=== PATIENT | male | born 1950 | race Caucasian/White ===

== ENCOUNTER 2016-04-13 06:02 | Day surgery (SDC) | payer MEDICARE ==
[2016-04-09 15:16] VITALS: BMI 27.7
[2016-04-13 06:24] VITALS: RESP 20
[2016-04-13] MEDS ORDERED: Dexamethasone 4 mg/1 ml ONE ×2 (07:06→07:57)
[2016-04-13] MEDS ORDERED: methylPREDNISolone Depo 80 mg/ml Inj ONE (07:06)
[2016-04-13] MEDS ORDERED: Bacitracin Ointment 30 GM TUBE ONE (07:07)
[2016-04-13] MEDS ORDERED: Midazolam 2 MG/2 ML VIAL ONE (07:25)
[2016-04-13] MEDS ORDERED: Propofol 10 mg/ml Inj (20 ML) ONE (07:25)
[2016-04-13] MEDS ORDERED: ePHEDrine 50 mg/ml Inj ONE (07:26)
[2016-04-13] MEDS ORDERED: Succinylcholine 200 mg/10 ml Inj IV ONE (07:26)
[2016-04-13] MEDS ORDERED: Rocuronium 10 mg/ml (5 ml) ONE (07:26)
[2016-04-13] MEDS ORDERED: Phenylephrine 10 mg/ml Inj ONE (07:26)
[2016-04-13] MEDS ORDERED: Lactated Ringer's 1,000 ML IV ONE (07:30)
[2016-04-13] MEDS ORDERED: Bupivacaine 0.5% Inj(30mL) ONE (07:35)
[2016-04-13] MEDS ORDERED: Lidocaine 1% Inj (20ml) ONE (07:35)
[2016-04-13] MEDS ORDERED: Bupivacaine 0.5% 50 ML IJ ONE ×3 (09:18→09:32)
[2016-04-13] MEDS ORDERED: Dexamethasone 4 mg/1 ml IM ONE ×3 (09:19→09:32)
[2016-04-13] MEDS ORDERED: Bacitracin OINT 15GM TOP ONE ×2 (09:31→09:32)
[2016-04-13] MEDS: HYDROmorphone 0.5 mg/0.5 ml ISec IVP PRN ×2 (10:26→10:35)
[2016-04-13] MEDS ORDERED: Ropivacaine 0.5% 30ML IV ONE (10:26)
--- NOTE | 2016-04-13 11:28 | PCM.SURG1 ---
Surgeon's Initial Post Op Note - Surgeon's Notes Surgeon: Kanchan Director Trial: JAIRO Santamaria Type of Anesthesia: General Endo Anesthesia Administered By: Dr Escamilla Pre-Operative Diagnosis: Carpal Tunnely Syndrome R Wrist. trigger finger 4th finger R hand/ Trigger Thumb Operative Findings: as above Post-Operative Diagnosis: as above. flexortenosynovitis (flexor tendons carpal tunnel) Operation Performed: Release carpal tunnel/Median nerve release. partial flexor tenosynovectomy Specimen/Specimens Removed: tenosynovium. epineurium. transverser carpal ligament. a1/C1 madisyn Estimated Blood Loss: EBL {In ML}: 15 Blood Products Given: N/A Drains Used: No Drains Post-Op Condition: Good Date of Surgery/Procedure: 04/13/16 Time of Surgery/Procedure: 08:30 (time in room:7:45/anaetsheisa induction time 8 :25/ end time 10:00)
[2016-04-13 11:38] VITALS: PULSE 91; O2SAT 98
[2016-04-13] MEDS ORDERED: Insulin Regular 100 units/ml SC SCH (12:00)
[2016-04-13] MEDS ORDERED: Oxycodone/Acetaminophen 5/325 mg Tab PO STA (12:06)
[2016-04-13 12:36] VITALS: BP 141/76; TEMP 97.6
[2016-04-13] MEDS ORDERED: Oxycodone/Acetaminophen 5/325 mg Tab PO ONE (12:45)
--- NOTE | 2016-04-14 15:54 | OP ---
PROCEDURE DATE: 04/13/2016 PREOPERATIVE DIAGNOSES: 1. Carpal tunnel syndrome, right wrist. 2. Trigger thumb. 3. Trigger finger, fourth finger, right hand/ring finger, right hand. POSTOPERATIVE DIAGNOSES: 1. Carpal tunnel syndrome, right wrist. 2. Trigger thumb. 3. Trigger finger, fourth finger, right hand/ring finger, right hand. PROCEDURES: 1. Release carpal tunnel. 2. Partial median neurolysis. 3. Partial flexor tenosynovectomy. 4. Release trigger thumb. 5. Release trigger finger, A1 madisyn fourth finger, partial flexor tenosynovectomy, thumb and fourth finger. SURGEON: Avi Hemphill MD BULK CLERK: Lisa Robertson. ANESTHESIA: General endotracheal anesthesia; Dr. Escamilla. COMPLICATIONS: None. DRAINS: None. OPERATIVE INDICATION: This patient is a gentleman well known to my practice, a 65-year-old gentleman who presents with pain and restricted range of motion of the wrist. The patient has marked discomfo rt, pain and restricted range of motion with triggering of the C1 madisyn of thumb and the A1 madisyn o f the fourth finger of the right hand. Pros, cons, risks and benefits of surgical approach were disc ussed. The possibility of mechanical failure, infection, nerve injury, thromboembolic disease, secon dave or tertiary surgery is discussed. The patient can no longer stand the discomfort. OPERATIVE PROCEDURE: After having obtained informed consent in the above fashion, after the satisfac tory induction of general endotracheal anesthesia, after having identified side, site and procedure, and a critical pause/timeout, the patient correctly identified, in the supine position with all bony prominences well padded, the right upper extremity is prepped and free draped in a sterile fashion fo r upper extremity surgery. The tourniquet had been applied, but is not yet inflated. After exsangui nating the limb using a 6-inch Esmarch bandage, the tourniquet which had been applied is inflated to 250 mmHg. The operation is performed under loupe magnification. An initial incision as described in the median palmar crease deviating radially at the distal crease and deviating back ulnarly at proxi mal crease. The skin incision is carried down through the skin and subcutaneous tissue. The underly ing palmar aponeurosis was identified. The operation is performed under loupe magnification. This treadwell ving been accomplished, the entire extent of the transverse carpal ligament is identified. The entir e extent of the transverse carpal ligament is released. There is found to be evidence of release of the transverse carpal ligament. Partial median neurolysis is accomplished as well as partial flexor tenosynovectomy under direct vision with the ____ dissecting scissors/tenotomy scissors. There is fo und to be a fischer purplish hue to the median nerve and it is found that this is indeed compressed. Th e entire extent of the transverse carpal ligament to the distal aspect of the forearm was released. Partial medial neurolysis is accomplished as is partial flexor tenosynovectomy. This having been acc omplished, attention is turned to the thumb. At the proximal crease, an incision is described at the base of the thumb superficial to the C1 madisyn. Skin incision is carried down through the skin and subcutaneous tissue. Dissection is carried out with a hemostat to avoid injury to the digital nerves . Modified Ragnell retractors were employed to protect the nerve. At this point in time, the C1 pul mariel is identified. Using a #15 blade, again under direct magnified vision, the trapezoid is removed from the C1 madisyn. The wound is thoroughly irrigated. The flexor tendon is freed, partial flexor t enosynovectomy is accomplished. The wound is thoroughly irrigated. The FPL was fishtailed into the wound with a hemostat to prove that it is completely free. Closure is in layers with interrupted Jorge ryl and nylon. Attention is turned to the ring finger in the area of the A1 madisyn. A superficial 1 cm incision is described. The skin incision is carried down through the skin and subcutaneous tissu e. Dissection is carried down. Again, the digital nerves were identified and protected using retrac tors. This having been accomplished, the trapezoidal A1 madisyn is identified. A trapezoid is remove d and the remains of the A1 madisyn are released. The flexor tendon is moved into the wound. The wou nd is thoroughly irrigated. Closure is in layers with interrupted Vicryl and nylon. Eddie Whitt co mpression dressing and volar splint is applied. Avi Hemphill MD cc: [id number] TT: 04/14/2016 15:53:45 mn
== END 2016-04-13 13:40 | disposition home or self-care (01) ==
LOC: H.OPSURG 06:02
PROVIDERS: ATTEND Orthopaedic Surgery
DX: G56.01 Carpal tunnel syndrome, right upper limb (principal); M65.311 Trigger thumb, right thumb; M65.341 Trigger finger, right ring finger; M19.91 Primary osteoarthritis, unspecified site; I10 Essential (primary) hypertension; E78.5 Hyperlipidemia, unspecified
CPT/HCPCS: 26055; 64721; 64727; 82948; 88304; 88307; J0330; J0690; J1100; J1170; J2001; J2250; J2370; J2405; J2704; J3010; J7030; J7120

== ENCOUNTER 2016-08-06 08:06 | Inpatient (IN) | payer MEDICARE ==
[2016-04-09 15:16] VITALS: BMI 27.7
--- NOTE | 2016-08-06 09:05 | CP.PCM.HP ---
History of Present Illness - History of Present Illness History of Present Illness: 65 y/.o male with PMH DM type II, HTN, left knee OA presented via [facility] for scheduled left total knee replacement by Dr. Hemphill. Patient has medical clearance in the chart. As per patient he has been suffering of left knee pain, decreased ROM and problem with his ambulation for more than 1 year. He underwent arthroscopic procedure for meniscus repair months ago with not much improvement. Today he is here for left TKR . He denies any chest pain, palpitations, PND, orthopnea,SOB, urinary symptoms or changes in bowel movements. Allergies ; NKDA PMH ; DM type II, HTN Medications ; Norvasc, Lisinopril, Motrin,Glucotrol,metformin,Zocor Surgery ; left knee arthroscopy, carpal tunnel surgery cataract extraction, back surgery x 3 times Family history; Mother had heart disease, DM , HTN Brother had heart disease Social history , has 1 daughter, lives in [place] with family, retired ( used to work in [employer] for 23 [id number] with no assist devices, has 23 steps to get home, denies ETOH, smoking or drug abuse ROS ; 14 poit review of system negative except above Present on Admission - Present on Admission Any Indicators Present on Admission: No Review of Systems - Review of Systems All systems: reviewed and no additional remarkable complaints except Past Patient History - Infectious Disease Hx of Infectious Diseases: None - Tetanus Immunizations Tetanus Immunization: Unknown - Past Medical History & Family History Past Medical History?: Yes Past Family History: Reviewed and not pertinent - Past Social History Smoking Status: Never Smoked Chewing Tobacco Use: No Cigar Use: No Alcohol: None Drugs: Denies Home Situation {Lives}: With Family Domestic Violence: Negative - CARDIAC Hx Cardiac Disorders: Yes Hx Hypercholesterolemia: Yes Hx Hypertension: Yes - PULMONARY Hx Respiratory Disorders: No - NEUROLOGICAL Hx Neurological Disorder: No - HEENT Hx HEENT Problems: Yes Hx Cataracts: Yes - RENAL Hx Chronic Kidney Disease: No - ENDOCRINE/METABOLIC Hx Endocrine Disorders: Yes Hx Diabetes Mellitus Type 2: Yes - HEMATOLOGICAL/ONCOLOGICAL Hx Blood Disorders: No Hx Blood Transfusions: No - INTEGUMENTARY Hx Dermatological Problems: No - MUSCULOSKELETAL/RHEUMATOLOGICAL Hx Musculoskeletal Disorders: Yes Hx Arthritis: Yes Hx Back Pain: Yes Hx Falls: Yes Hx Osteoarthritis: Yes - GASTROINTESTINAL Hx Gastrointestinal Disorders: Yes Hx Gastroesophageal Reflux: Yes Other/Comment: HEARTBURN - GENITOURINARY/GYNECOLOGICAL Hx Genitourinary Disorders: No - PSYCHIATRIC Hx Psychophysiologic Disorder: No - SURGICAL HISTORY Hx Surgeries: Yes Hx Cataract Extraction: Yes (O.U) Hx Orthopedic Surgery: Yes (RIGHT KNEE) Other/Comment: BACK SX X3.CARPAL TUNNEL RELEASE RIGHT WRIST 04/13/2016 - ANESTHESIA Hx Anesthesia: Yes Hx Anesthesia Reactions: No Hx Malignant Hyperthermia: No Has any member of the family had a problem w/ anesthesia?: No Meds Allergies/Adverse Reactions: Allergies Allergy/AdvReac Type Severity Reaction Status Date / Time No Known Allergies Allergy Verified 08/06/16 08:29 Physical Exam - Constitutional Appears: Non-toxic, No Acute Distress - Head Exam Head Exam: ATRAUMATIC, NORMAL INSPECTION, NORMOCEPHALIC - Eye Exam Eye Exam: EOMI, Normal appearance, PERRL Pupil Exam: NORMAL ACCOMODATION - ENT Exam ENT Exam: Mucous Membranes Moist, Normal Exam - Neck Exam Neck exam: Positive for: Full Rom, Normal Inspection - Respiratory Exam Respiratory Exam: Clear to Auscultation Bilateral, NORMAL BREATHING PATTERN. absent: Rales, Rhonchi, Wheezes - Cardiovascular Exam Cardiovascular Exam: REGULAR RHYTHM, RRR, +S1, +S2. absent: JVD - GI/Abdominal Exam GI & Abdominal Exam: Normal Bowel Sounds, Soft. absent: Distended, Guarding, Rebound, Tenderness - Rectal Exam Rectal Exam: Deferred - Extremities Exam Extremities exam: Positive for: normal capillary refill, normal inspection, pedal pulses present. Negative for: calf tenderness, pedal edema - Back Exam Back exam: NORMAL INSPECTION - Neurological Exam Neurological exam: Alert, CN II-XII Intact, Oriented x3, Reflexes Normal - Psychiatric Exam Psychiatric exam: Normal Affect, Normal Mood - Skin Skin Exam: Dry, Intact, Normal Color, Warm Assessment & Plan - Assessment and Plan (Free Text) Assessment: 65 y/o male with PMH DM type II, HTN, left knee OA presented via [facility] for scheduled left total knee replacement by Dr. Hemphill. Patient has medical clearance in the chart. As per patient he has been suffering of left knee pain, decreased ROM and problem with his ambulation for more than 1 year. He underwent arthroscopic procedure for meniscus repair months ago with not much improvement. Today he is here for left TKR . He denies any chest pain, palpitations, PND, orthopnea,SOB, urinary symptoms or changes in bowel movements. 1. Left knee osteoarthritis Admit patient via [facility] for Left TKR by Dr. Hemphill ortho consult Patient has medical clearance in the chart Keep NPo for now will follow up post op 2. DM type II NPO for now for surgery accuchecks ,low dose aspart coverage resume Metformin and glucotrol once starts Po intake 3.HTN resume home meds , lisinopril and Norvasc 4.DVT prophylaxis To be started post op as per ortho recomemndations
[2016-08-06] MEDS ORDERED: Bupivacaine 0.5% Inj(30mL) ONE (09:49)
[2016-08-06] MEDS ORDERED: Lidocaine 1% Inj (20ml) ONE (09:49)
[2016-08-06] MEDS ORDERED: Bacitracin Ointment 30 GM TUBE ONE (09:49)
[2016-08-06] MEDS ORDERED: Thrombin Topical 5,000 IU Spray Kit ONE (09:50)
[2016-08-06] MEDS ORDERED: Absorbable Gelatin Sponge Size 100 ONE (09:50)
[2016-08-06] MEDS ORDERED: Phenylephrine 10 mg/ml Inj ONE (11:01)
[2016-08-06] MEDS ORDERED: Succinylcholine 200 mg/10 ml Inj IV ONE (11:07)
[2016-08-06] MEDS ORDERED: Midazolam 2 MG/2 ML VIAL ONE (11:07)
[2016-08-06] MEDS ORDERED: Propofol 10 mg/ml Inj (20 ML) ONE (11:07)
[2016-08-06] MEDS ORDERED: ePHEDrine 50 mg/ml Inj ONE ×2 (11:08→13:34)
[2016-08-06] MEDS ORDERED: Bupivacaine HCl 0.5% PF (30 ml) Inj ONE (11:19)
[2016-08-06] MEDS ORDERED: Bupivacaine HCl 0.25% PF (30 ml) Inj ONE (11:20)
[2016-08-06] MEDS ORDERED: Vecuronium 10 mg Inj ONE (11:25)
--- NOTE | 2016-08-06 11:46 | RAD ---
PROCEDURE: Left Knee Radiographs. HISTORY: Pain. COMPARISON: None. FINDINGS: BONES: Bone alignment and mineralization are normal. There is no acute fracture or bone destruction. JOINTS: There is severe tricompartmental degenerative osteoarthrosis with reduced joint spaces, marginal osteophytes and tibial spiking, worse in the medial compartment. JOINT EFFUSION: There is a small suprapatellar joint effusion. OTHER FINDINGS: None. IMPRESSION: Moderate tricompartmental degenerative osteoarthrosis, worse in the medial compartment. Small suprapatellar joint effusion.
[2016-08-06] MEDS ORDERED: Lactated Ringer's 1,000 ML IV ONE ×2 (12:22→14:40)
[2016-08-06] MEDS ORDERED: Rocuronium 10 mg/ml (5 ml) ONE (13:50)
--- NOTE | 2016-08-06 14:47 | PCM.SURG1 ---
Surgeon's Initial Post Op Note - Surgeon's Notes Surgeon: Kanchan Asphalt Blender: JAIRO Fair/ 2nd reid Estrella Type of Anesthesia: General Endo, Spinal Anesthesia Administered By: Dr Leah Cuevas Pre-Operative Diagnosis: Troicomparmtental primary O/A L knee. tricompartmental synovitis. posterior capsular contracture. lateral patella retinacular contracture Operative Findings: as above Post-Operative Diagnosis: as above Operation Performed: L TKR. anterior and posterior synovectomy. posteriopr capsular release. latera; patella release. computer navigation Specimen/Specimens Removed: synovium/ Estimated Blood Loss: EBL {In ML}: 75 Blood Products Given: N/A Drains Used: No Drains Post-Op Condition: Good Date of Surgery/Procedure: 08/06/16 Time of Surgery/Procedure: 13:25 (time in room: 12:22/12:22)
[2016-08-06] MEDS ORDERED: Desflurane Inhalation Anesthetic Liq (240 ml) ONE (15:00)
[2016-08-06] MEDS ORDERED: Neostigmine Methylsulfate 2 MG/2 ML ML IV ONE (15:02)
[2016-08-06] MEDS ORDERED: Neostigmine Methylsulfate 3mg/3ml Syringe IV ONE (15:02)
[2016-08-06] MEDS ORDERED: HYDROmorphone 0.5 mg/0.5 ml ISec ONE (15:52)
[2016-08-06] MEDS ORDERED: HYDROmorphone 0.5 mg/0.5 ml ISec IVP PRN (16:00)
[2016-08-06] MEDS ORDERED: Insulin Regular 100 units/ml SC ONE (16:12)
[2016-08-06] MEDS: Lactated Ringer's 1,000 ML IV SCH ×3 (16:23→17:30)
--- NOTE | 2016-08-06 16:25 | PCM.OP ---
Operative Report - Operative Report Date of Surgery/Procedure: 08/06/16 Time of Surgery/Procedure: 13:25 (time in roomk/anaesthesia indcution time:12:22 / 3nd 15:35) Surgeon: Kanchan Substance Abuse Counselor: 1st assist JAIRO Santamaria/2nd assist Yusuf Pak Anesthesia/Sedation: General is. / regional Pre-Operative Diagnosis: Primary O/A L knee Post-Operative Diagnosis: Primary O/A L knee. tricompartmental synovitis. posterior capsular contracture. lateral patella contracture Indication for Surgery: sevre pain and restricte L knee ROM, refracrtory to conservative approach Operative Findings: severe triucomaprtmental O/A L knee. antnow is wheneriopr and postertioor sisynovitis. posterior ca aggravationpsular cointrascture. lateral patella contracture Procedure/Operation Description: dictating the operative procedure Leti Fitzgerald. Operative procedure after obtained informed consent after thoroughly discussing the pros, risks and benefits of knee r replacement the possibility of mechanical failure, infection, thromboembolic disease, stiffness nerve injury the patient identified as letitrey fitzgerald in supine position with all bony prominences well-padded. Left lower extremity is prepped and free draped in usual fashion for knee replacement arthroplasty. After the satisfactory induction of regional and general anesthesia, after having identified side and procedure in a critical pause/timeout the left lower extremity is exsanguinated using a 6 inch Esmarch bandage. The tourniquet which have applied is inflated to 350 mmHg. A 6 inch straight midline approach is made to the knee. The skin incision was carried through the skin and subcutaneous tissue. A medial arthrotomy was accomplished. Dissection was carried around posteromedially to the direct head of the semimembranosus tendon. A portion of the patellar ligament was elevated carefully. Tibia is dislocated anteriorly. Anterior and posterior cruciate ligaments are excised; medial and lateral meniscectomies are accomplished. Initial osteotomy of the arthroplasty is accomplished on the tibial side. The navigation device is placed On the anterior aspect of the tibia. The sensor and accelerometer are positioned. Registration was accomplished. After registering the medial malleolus and lateral malleolus varus valgus is set at 0. Posterior slope was set at 1.5 posterior slope. the osteotomy was accomplished sizing of the tibia commences. The #4 tibial guide is placed. Guidance to rotation or the lateral aspect of the tibia. The minimally R axis is employed The proximal tibia having been prepared, attention is turned to the femur. The guide pin is placed above the intercondylar notch. The distal femoral cutting guide is affixed. Sensor was placed and the accelerometer is pl;aced. Registration was accomplished. The hip center was found by rotating the hip. The distal cut was set to 0 varus valgus and 0.5 flexion. The distal cut was set to 10 mm. The distal cut was accomplished. Anterior posterior sizing was found to be a #5 femoral component. The 4-in-1 block is placed on the Distal aspect of the femur. Anterior and posterior synovectomy. The anterior and posterior osteotomies are accomplished on the Femoral side. There is evidenced posterior capsule contracture. The posterior capsule was release both medially and laterally. There was found to be a lateral patellar retinacular contracture as well. A lateral patellar release was accomplished. Femoral trial and tibial trials were applied. 12 mm tibial polyethylene is employed. Flexion and extension balance is excellent. Attention was turned to the patell. Patella is measured. Free hand patellar osteotomy was accomplished. The patella was reamed to a size 37 Flexion-extension balance and patella balance are felt to be excellent. this having been accomplished the femur and tibia and patella were prepared. The #5 femoral component #4 tibial component and the 37 mm patella component are cemented with meticulous technique. The wounds thoroughly irrigated with Irircept., The tourniquet was deflated. Hemostasis control. Closure was in layers #1 Vicryl followed by zero quill and radha for skin. A Eddie Whitt compression dressing is applied. Aquacel dressing is employed. The patient was transferred from the operating room table to the stretcher and tolerated the procedure well. Blood loss was 75 mL no complications no drains. This is the end of the operative description and procedure portion of the postoperative note. Dr. Hemphill dictating 08/06/2016. Estimated Blood Loss: 75 cc Blood Replaced: 0 Sponge/Instrument Count: correct Drains: 0 Complications: none Specimen: bone cartilage synvium Discharge & Condition: stable- discharge to PACU
[2016-08-06] MEDS: ceFAZolin 2 GM in Sodium Chloride 0.9% 100 ML IVPB SCH (17:45)
--- NOTE | 2016-08-06 18:16 | RAD ---
PROCEDURE: Left Knee Radiographs. HISTORY: Pain. COMPARISON: None. FINDINGS: BONES: Satisfactory postoperative status following left TKA. Components of the left knee arthroplasty are anatomically aligned. JOINTS: Normal. No osteoarthritis. JOINT EFFUSION: None. OTHER FINDINGS: None. IMPRESSION: Satisfactory postoperative status.
[2016-08-06] MEDS: Insulin Lispro (humaLOG) 100 Units/ml Inj SC SCH (22:03)
[2016-08-07] MEDS: ceFAZolin 2 GM in Sodium Chloride 0.9% 100 ML IVPB SCH ×2 (00:36→12:06)
[2016-08-07] MEDS: Lactated Ringer's 1,000 ML IV SCH (00:54)
[2016-08-07] MEDS: Sodium Chloride 0.9% 1,000 ML IV SCH ×2 (04:28→16:32)
[2016-08-07 06:38] LABS: HEMOGLOBIN 10.4 g/dL (12.0-18.0); MEAN CELL VOLUME 82.4 fl (80.0-94.0); MEAN CORPUSCULAR HEMOGLOBIN 27.8 pg (27.0-31.0); MEAN CORPUSCULAR HGB CONC 33.7 g/dL (33.0-37.0); RBC 3.75 Mil/uL (4.40-5.90); RED CELL DISTRIBUTION WIDTH 15.5 % (11.5-14.5); WHITE BLOOD COUNT 10.4 K/uL (4.8-10.8)
[2016-08-07 06:59] LABS: BLOOD UREA NITROGEN 12 mg/dl (9-20); CALCIUM 8.8 mg/dL (8.4-10.2); GFR AFRICAN-AMERICAN > 60; GFR NON-AFRICAN AMERICAN > 60
--- NOTE | 2016-08-07 07:19 | PCM.ANESB3 ---
Femoral Nerve Block - Femoral Nerve Block Date of Procedure: 08/06/16 Anesthesiologist: Leah Cuevas Pre-Procedure Diagnosis: Left Knee Osteoarthritis Procedure Performed: Femoral Nerve Block Left - Procedure Femoral Nerve Block: The procedure was explained to the patient that it is for the post-operative pain management. Consent was obtained after a thorough discussion with the patient regarding the benefits and possible complications of local anesthetic block of the femoral nerve at the inguinal crease area. The patient was brought to the operating room and standard monitors were applied. Time-out was held with the circulating nurse to confirm the correct surgery and the appropriate block. After applying oxygen by nasal cannula and administering IV Sedation, patient was placed in supine position with fully extended lower extremities and the left groin exposed. The femoral artery was then carefully palpated. The ultrasound transducer was then applied to this area in the transverse plane and the femoral nerve was visualized lateral to the femoral artery and underneath the fascia iliaca. After thorough identification, the inguinal crease area was prepped with Betadine solution three times and 1 % Lidocaine was injected subcutaneously for topical anesthesia. At this point, a #22 gauge Stimuplex 2-inch needle was inserted immediately lateral to the femoral artery pulse at the inguinal crease and advanced perpendicularly. The needle was inserted to the ultrasound transducer in-plane towards the femoral nerve in a [id number] direction. Needle advancement was performed carefully under direct ultrasound visualization. Nerve stimulator was used and twitch of the quadriceps muscle was obtained at current of 0.4 MA. After negative aspiration, 20cc of 0.375% _bupivacaine was injected. Under ultrasound guidance the local anesthetics were observed spreading below fascia iliaca and around the femoral nerve. The needle was removed intact and sterile dressing was applied. The patient had stable vital signs, was conscious and in no apparent distress. The patient tolerated the femoral nerve block well with stable vital signs and was prepared for subsequent surgery.
--- NOTE | 2016-08-07 07:21 | PCM.ANESB2 ---
Popliteal Nerve Block - Popliteal Nerve Block Date of Procedure: 08/06/16 Anesthesiologist: Leah Cuevas Pre-Procedure Diagnosis: Left Knee Osteoarthritis Procedure Performed: Popliteal Nerve Block Left - Procedure Popliteal Nerve Block: This procedure was explained to the patient that it is for post-operative pain management. Consent was obtained after a thorough discussion with the patient regarding the benefits and possible complications of local anesthetic block of the sciatic nerve at the popliteal level. The patient was brought to the operating room and standard monitors are applied. Time-out was held with the circulating nurse to confirm the correct surgery and the appropriate block. After applying oxygen by nasal cannula and administering IV Sedation, patient's operative leg was gently raised and supported and the groove in between the biceps femoris and vastus lateralis muscles was carefully palpated. The skin approximately 8cm above the popliteal crease was then marked. The ultrasound transducer was then applied to the posterior thigh approximately 8cm above the popliteal crease in the transverse plane and the sciatic nerve before its division was visualized lateral to the popliteal artery and in between the bicep femoris and semimembranosus/semitendinosus muscles. After identification, the lateral portion of the thigh was prepped with Betadine solution three times and Lidocaine 1% was injected subcutaneously for topical anesthesia. At this point, a # 21 gauge Stimuplex insulated 4 inch needle was inserted into pre-marked area and advanced in a perpendicular direction. The needle was inserted above the ultrasound transducer in-plane towards the sciatic nerve in a [id number] direction. Needle advancement was performed carefully under direct ultrasound visualization. Nerve stimulator was used and dorsiflexion of the left foot was elicited at a current of 0.4 MA. After repeated negative aspiration, 15cc of 0.375 % was injected. Under ultrasound guidance the local anesthetics were observed tenting the epidural sheath and surrounding the roots of the sciatic nerve. The needle was removed intact and sterile dressing was applied. The patient tolerated the distal sciatic/popliteal nerve block well with stable vital signs and was subsequently prepared for the surgery.
--- NOTE | 2016-08-07 07:48 | CP.PCM.PN ---
Subjective - Date & Time of Evaluation Date of Evaluation: 08/07/16 Time of Evaluation: 09:00 - Subjective Subjective: Patient seen and examined bedside. Complains of abdominal discomfort , unable to void freely.With urinary retention overnight. Hemopdynamically stable, afebrile. Denies any pain to left knee. Objective - Vital Signs/Intake and Output Vital Signs (last 24 hours): Temp Pulse Resp BP Pulse Ox 98.2 F 106 H 20 122/71 96 08/07/16 05:00 08/07/16 05:00 08/07/16 05:00 08/07/16 05:00 08/07/16 05:00 - Medications Medications: Current Medications Acetaminophen (Tylenol 325mg Tab) 650 mg PO Q6 PRN PRN Reason: Fever >100.4 F Amlodipine Besylate (Norvasc) 5 mg PO DAILY [facility] Docusate Sodium (Colace) 100 mg PO BID [facility] Enoxaparin Sodium (Lovenox) 40 mg SC DAILY [facility] PRN Reason: Protocol Glipizide (Glucotrol) 10 mg PO DAILY@0730 [facility] Home Med (Simvastatin [Zocor]) 10 mg PO DAILY [facility] Sodium Chloride (Sodium Chloride 0.9%) 1,000 mls @ 100 mls/hr IV .Q10H [facility] Last Admin: 08/07/16 04:28 Dose: Not Given Cefazolin Sodium 2 gm/ Sodium (Chloride) 100 mls @ 100 mls/hr IVPB Q8 [facility] Stop: 08/07/16 09:59 Last Admin: 08/07/16 00:36 Dose: 100 mls/hr Insulin Human Lispro (Humalog) 0 units SC ACHS [facility] PRN Reason: Protocol Last Admin: 08/06/16 22:03 Dose: 2 units Lisinopril (Zestril) 10 mg PO DAILY [facility] Metformin HCl (Glucophage) 1,000 mg PO BID@0800,1700 [facility] Pantoprazole Sodium (Protonix Ec Tab) 40 mg PO DAILY [facility] - Labs Labs: 08/07/16 05:20 08/07/16 05:20 - Constitutional Appears: Non-toxic, No Acute Distress - Head Exam Head Exam: ATRAUMATIC, NORMAL INSPECTION, NORMOCEPHALIC - Eye Exam Eye Exam: EOMI, Normal appearance, PERRL Pupil Exam: NORMAL ACCOMODATION - ENT Exam ENT Exam: Mucous Membranes Moist, Normal Exam - Neck Exam Neck Exam: Full ROM, Normal Inspection - Respiratory Exam Respiratory Exam: Clear to Ausculation Bilateral, NORMAL BREATHING PATTERN. absent: Rales, Rhonchi, Wheezes - Cardiovascular Exam Cardiovascular Exam: REGULAR RHYTHM, RRR, +S1, +S2. absent: JVD - GI/Abdominal Exam GI & Abdominal Exam: Tenderness (suprapubic ), Normal Bowel Sounds. absent: Guarding, Rebound - Rectal Exam Rectal Exam: Deferred - Extremities Exam Extremities Exam: absent: Calf Tenderness, Pedal Edema Additional comments: left knee dressing and immobilizer in place - Back Exam Back Exam: NORMAL INSPECTION - Neurological Exam Neurological Exam: Alert, Awake, CN II-XII Intact, Oriented x3 - Psychiatric Exam Psychiatric exam: Normal Affect, Normal Mood - Skin Skin Exam: Dry, Intact, Normal Color, Warm Assessment and Plan - Assessment and Plan (Free Text) Assessment: 65 y/o male with PMH DM type II, HTN, left knee OA presented via [facility] for scheduled left total knee replacement by Dr. Hemphill. As per patient he has been suffering of left knee pain,decreased ROM and problem with his ambulation for more than 1 year. He underwent arthroscopic procedure for meniscus repair months ago with not much improvement.He underwent left TKR 08/06 . Today post op #1, doing well with post op urinary retention 1. Left knee osteoarthritis- s/p Left TKR POD #1 Pain well controlled will d/c [employer] pump and start Percoset PRN for pain Ortho following Received Ancef Iv x 3 doses Incentive spirometry Q1 hour Start ambulkation with PT Lovenox for DVt prophylaxis 2. DM type II uncontrolled accuchecks ,low dose aspart coverage resumed Metformin and glucotrol diabetic diet 3.HTN controlled Continue lisinopril and Norvasc 4. Acute blood loss anemia Hgb 10 Continue to monitor 5. Post op urinary retention requiring straight cath twice (Last 9;00 Am with 1050 ml ) d/c [employer]ER pump Start ambulation and flomax 6.DVT prophylaxis lovenox 40 mg Sq daily
--- NOTE | 2016-08-07 08:10 | CP.PCM.PN ---
Subjective - Date & Time of Evaluation Date of Evaluation: 08/07/16 Time of Evaluation: 08:05 - Subjective Subjective: S- pt with minimal post op discomfort Objective - Vital Signs/Intake and Output Vital Signs (last 24 hours): Temp Pulse Resp BP Pulse Ox 98.3 F 110 H 20 154/85 H 97 08/07/16 07:52 08/07/16 07:52 08/07/16 07:52 08/07/16 07:52 08/07/16 07:52 - Medications Medications: Current Medications Acetaminophen (Tylenol 325mg Tab) 650 mg PO Q6 PRN PRN Reason: Fever >100.4 F Amlodipine Besylate (Norvasc) 5 mg PO DAILY [facility] Docusate Sodium (Colace) 100 mg PO BID [facility] Enoxaparin Sodium (Lovenox) 40 mg SC DAILY [facility] PRN Reason: Protocol Glipizide (Glucotrol) 10 mg PO DAILY@0730 [facility] Home Med (Simvastatin [Zocor]) 10 mg PO DAILY [facility] Sodium Chloride (Sodium Chloride 0.9%) 1,000 mls @ 100 mls/hr IV .Q10H [facility] Last Admin: 08/07/16 04:28 Dose: Not Given Cefazolin Sodium 2 gm/ Sodium (Chloride) 100 mls @ 100 mls/hr IVPB Q8 [facility] Stop: 08/07/16 09:59 Last Admin: 08/07/16 00:36 Dose: 100 mls/hr Insulin Human Lispro (Humalog) 0 units SC ACHS [facility] PRN Reason: Protocol Last Admin: 08/06/16 22:03 Dose: 2 units Lisinopril (Zestril) 10 mg PO DAILY [facility] Metformin HCl (Glucophage) 1,000 mg PO BID@0800,1700 [facility] Pantoprazole Sodium (Protonix Ec Tab) 40 mg PO DAILY [facility] - Labs Labs: 08/07/16 05:20 08/07/16 05:20 - Additional Findings Additional findings: Obj systemic- wnl musculoskekeletal stance/gait- defrred L knee wound bengin N/V intact orthopedically stable post op Xrasy reveal acceptabler position of construct Assessment and Plan - Assessment and Plan (Free Text) Assessment: A- s/p L TKR P-physio orthopedically stable
[2016-08-07] MEDS: Enoxaparin 40 mg Syringe SC SCH (08:38)
[2016-08-07] MEDS: Insulin Lispro (humaLOG) 100 Units/ml Inj SC SCH ×4 (08:41→21:16)
[2016-08-07] MEDS: Pantoprazole 40 mg EC Tab PO SCH (08:41)
[2016-08-07] MEDS ORDERED: SIMVASTATIN 10 MG PO SCH (09:00)
[2016-08-07] MEDS ORDERED: Oxycodone/Acetaminophen 5/325 mg Tab PO PRN (09:09)
[2016-08-07] MEDS: Oxycodone/Acetaminophen 5/325 mg Tab PO PRN ×2 (09:29→21:09)
[2016-08-08] MEDS: Oxycodone/Acetaminophen 5/325 mg Tab PO PRN ×2 (03:26→09:39)
[2016-08-08] MEDS: Insulin Lispro (humaLOG) 100 Units/ml Inj SC SCH (06:57)
[2016-08-08 07:30] LABS: HEMOGLOBIN 8.6 g/dL (12.0-18.0); MEAN CELL VOLUME 83.2 fl (80.0-94.0); MEAN CORPUSCULAR HEMOGLOBIN 27.4 pg (27.0-31.0); MEAN CORPUSCULAR HGB CONC 32.9 g/dL (33.0-37.0); RBC 3.13 Mil/uL (4.40-5.90); RED CELL DISTRIBUTION WIDTH 15.2 % (11.5-14.5)
[2016-08-08] MEDS: Pantoprazole 40 mg EC Tab PO SCH (08:03)
[2016-08-08] MEDS: Enoxaparin 40 mg Syringe SC SCH (08:03)
[2016-08-08 08:08] VITALS: BP 116/69; PULSE 96
[2016-08-08 08:53] VITALS: RESP 20; TEMP 98.3; O2SAT 95
[2016-08-08] MEDS: Sodium Chloride 0.9% 1,000 ML IV SCH (10:17)
--- NOTE | 2016-08-09 07:57 | CP.PCM.DIS ---
Provider - Provider Date of Admission: 08/06/16 17:27 Attending physician: Venecia Cedeno MD Primary care physician: Deja Trammell MD Consults: Ortho: Dr Hemphill Time Spent in preparation of Discharge (in minutes): 25 Diagnosis - Discharge Diagnosis (1) S/P TKR (total knee replacement) Status: Acute (2) Primary osteoarthritis Status: Chronic (3) HTN (hypertension) Status: Chronic (4) DM type 2 (diabetes mellitus, type 2) Status: Chronic (5) Postoperative urinary retention Status: Acute (6) Postoperative anemia due to acute blood loss Status: Acute (7) DVT prophylaxis Status: Acute Hospital Course - Lab Results Lab Results: Most Recent Lab Values WBC 9.0 K/uL (4.8-10.8) 08/08/16 05:30 RBC 3.13 Mil/uL (4.40-5.90) L 08/08/16 05:30 Hgb 8.6 g/dL (12.0-18.0) L 08/08/16 05:30 Hct 26.0 % (35.0-51.0) L 08/08/16 05:30 MCV 83.2 fl (80.0-94.0) 08/08/16 05:30 MCH 27.4 pg (27.0-31.0) 08/08/16 05:30 MCHC 32.9 g/dL (33.0-37.0) L 08/08/16 05:30 RDW 15.2 % (11.5-14.5) H 08/08/16 05:30 Plt Count 166 K/uL (130-400) 08/08/16 05:30 Sodium 136 mmol/l (132-148) 08/07/16 05:20 Potassium 4.5 MMOL/L (3.6-5.0) 08/07/16 05:20 Chloride 102 mmol/L (98-107) 08/07/16 05:20 Carbon Dioxide 24 mmol/L (22-30) 08/07/16 05:20 Anion Gap 15 (10-20) 08/07/16 05:20 BUN 12 mg/dl (9-20) 08/07/16 05:20 Creatinine 0.8 mg/dL (0.8-1.5) 08/07/16 05:20 Est GFR ( Amer) > 60 08/07/16 05:20 Est GFR (Non-Af Amer) > 60 08/07/16 05:20 POC Glucose (mg/dL) 292 mg/dL (65-110) H 08/08/16 06:10 Random Glucose 286 mg/dL (75-110) H 08/07/16 05:20 Calcium 8.8 mg/dL (8.4-10.2) 08/07/16 05:20 Blood Type O POSITIVE 08/06/16 08:35 Blood Type Confirm O POSITIVE 08/06/16 11:44 Antibody Screen Negative 08/06/16 08:35 BBK History Checked No verified bt 08/06/16 08:35 - Hospital Course Hospital Course: 65 y/o male with PMH DM type II, HTN, left knee OA presented via [facility] for scheduled left total knee replacement by Dr. Hemphill. As per patient he has been suffering of left knee pain,decreased ROM and problem with his ambulation for more than 1 year. He underwent arthroscopic procedure for meniscus repair months ago with not much improvement. He underwent left TKR 08/06 . Pt did well post op. PT/OT consulted- rec [facility] placement for further physical and occupational therapy. 1. Left knee primary osteoarthritis- s/p Left TKR Pain well controlled d/c [employer] pump and started Percocet PRN for pain Received Ancef Iv x 3 doses Incentive spirometry Q1 hour PT/OT consulted- rec [facility] Lovenox for DVt prophylaxis 2. DM type II uncontrolled accuchecks ,low dose aspart coverage resumed Metformin and glucotrol diabetic diet 3.HTN controlled Continue lisinopril and Norvasc 4. Mild acute blood loss anemia , post op Pt is hemodynamically stable venofer IV given started Ferrous sulfate 5. Post op urinary retention sec to anesthesia , opiates requiring straight catheterization Flomax 6.DVT prophylaxis lovenox 40 mg Sq daily Discharge Exam - Head Exam Head Exam: ATRAUMATIC, NORMAL INSPECTION, NORMOCEPHALIC - Eye Exam Eye Exam: EOMI, Normal appearance Pupil Exam: NORMAL ACCOMODATION - ENT Exam ENT Exam: Mucous Membranes Moist, Normal External Ear Exam - Neck Exam Neck exam: Full Rom - Respiratory Exam Respiratory Exam: NORMAL BREATHING PATTERN. absent: Respiratory Distress - Cardiovascular Exam Cardiovascular Exam: REGULAR RHYTHM, +S1, +S2 - GI/Abdominal Exam GI & Abdominal Exam: Normal Bowel Sounds, Soft. absent: Tenderness - Extremities Exam Extremities exam: normal capillary refill, pedal pulses present Additional comments: no calf tenderness Left knee with dressing, CAN bandage - Neurological Exam Neurological exam: Alert, CN II-XII Intact, Oriented x3, Reflexes Normal - Psychiatric Exam Psychiatric exam: Normal Affect, Normal Mood - Skin Skin Exam: Dry, Normal Color, Warm Discharge Plan - Discharge Medications Prescriptions: Ferrous Sulfate 325 mg PO BID #1 tablet - Follow Up Plan Condition: GOOD Disposition: TRANSF TO SNF Instructions: Knee Replacement (DC) Additional Instructions: d/c to [facility] ff up with Dr Hemphill in 1 wk Referrals: Avi Hemphill III, MD [Staff Provider] - Deja Trammell MD [Primary Care Provider] -
== END 2016-08-08 10:59 | DRG 470 ==
LOC: H.OPSURG 08:06 → H.MEDSURG1 17:27 → H.OPSURG 17:59
PROVIDERS: ADMIT Hospitalist; ATTEND Hospitalist
PROC: 8E0YXBZ Computer Assisted Procedure of Lower Extremity (ICD-10-PCS; 2016-08-06)
PROC: 3E0T3BZ Introduction of Anesthetic Agent into Peripheral Nerves and Plexi, Percutaneous Approach (ICD-10-PCS; 2016-08-06)
PROC: 0SRD0J9 Replacement of Left Knee Joint with Synthetic Substitute, Cemented, Open Approach (ICD-10-PCS; principal; 2016-08-06 12:30)
PROC: 0SBD0ZZ Excision of Left Knee Joint, Open Approach (ICD-10-PCS; 2016-08-06 12:30)
PROC: 0SND0ZZ Release Left Knee Joint, Open Approach (ICD-10-PCS; 2016-08-06 12:30)
DX: M17.12 Unilateral primary osteoarthritis, left knee (principal); E11.65 Type 2 diabetes mellitus with hyperglycemia; I10 Essential (primary) hypertension; D62 Acute posthemorrhagic anemia; M65.9 Synovitis and tenosynovitis, unspecified; M24.562 Contracture, left knee; R33.0 Drug induced retention of urine; T40.605A Adverse effect of unspecified narcotics, initial encounter; T41.205A Adverse effect of unspecified general anesthetics, initial encounter